=== PATIENT | male | born 1960 | race Caucasian/White ===

== ENCOUNTER 2021-07-12 06:30 | Day surgery (SDC) | payer BC ==
[2021-07-12] MEDS ORDERED: Ringers Lactate 1,000 ML IV ONE (06:56)
[2021-07-12] MEDS ORDERED: propofoL 200 MG/20 ML VIAL IV ONE (07:54)
[2021-07-12] MEDS ORDERED: LIDOCAINE 1% MPF 5 ML VIAL ONE (07:54)
--- NOTE | 2021-07-12 08:20 | ENDO RPT ---
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 ESTIMATED BLOOD LOSS: None CONSENT: The patient understands the risks and benefits of the procedure and understands that these risks include, but are not limited to: sedation, allergic reaction, infection, perforation and/or bleeding. Alternative means of evaluation and treatment include, among others: physical exam, x-rays, and/or surgical intervention. The patient elects to proceed with this endoscopic procedure. DESCRIPTION OF PROCEDURE: During intra-op preparation period all mechanical medical equipment was checked for proper function. Hand hygiene and appropriate measures for infection prevention was taken. Procedure, possible complications, alternatives including, but not limited to possibility of bleeding, perforation, tear, infection, sepsis, need for surgery, need for blood transfusion, were explained to the patient. After the risks, benefits and alternatives of the procedure were thoroughly explained, Informed consent was verified, confirmed and timeout was successfully executed by the treatment team. The patient was placed in the left lateral position. A digital rectal exam was performed and revealed internal hemorrhoids, A digital rectal exam was performed and revealed external hemorrhoids, and A digital rectal exam was performed and revealed a skin tag. After appropriate level of anesthesia, the scope was passed. The EC-[id number] ([id number]) endoscope was introduced through the anus and advanced to the cecum, which was identified by both the appendix and ileocecal valve. The quality of the prep was fair. The instrument was then slowly withdrawn as the colon was fully examined. Scope withdrawal time was 10 minutes. COLON FINDINGS: Mild diverticulosis was noted in the sigmoid colon. A few smooth flat polyps ranging between 3-5mm in size were found in the sigmoid colon. A polypectomy was performed with cold forceps. The resection was complete, the polyp tissue was completely retrieved and sent to histology. A smooth, polypoid shaped and firm pedunculated polyp ranging between 5-9mm in size was found in the anal canal. A polypectomy was performed using snare cautery. The resection was complete, the polyp tissue was completely retrieved and sent to histology. Melanosis coli. Retroflexed views revealed no abnormalities. The scope was then completely withdrawn from the patient and the procedure terminated. ADVERSE EVENTS: There were no complications. IMPRESSIONS: Mild diverticulosis was noted in the sigmoid colon RECOMMENDATIONS: 1. avoid NSAIDS for 2 weeks 2. await biopsy results 3. fiber rich diet 4. follow-up: office 2 week(s) 5. Monitor for any evidence of rectal bleeding. 6. yearly hemoquant 7. increase dietary water RECALL: for Colonoscopy, pending biopsy results. Shay Burnham DR eSigned: Shay Burnham DR 07/12/2021 8:20 AM cc: CPT CODES: ICD9 CODES: PATIENT NAME: Montrell Bernabe MR#: [id number]
[2021-07-12 09:35] VITALS: O2SAT 97
[2021-07-12 09:36] VITALS: BP 128/71; TEMP 97.2
== END 2021-07-12 09:01 | disposition home or self-care (01) ==
LOC: OR 06:30
PROVIDERS: ATTEND Surgery
PROC: 0DBN8ZX Excision of Sigmoid Colon, Via Natural or Artificial Opening Endoscopic, Diagnostic (ICD-10-PCS; 2021-07-12)
PROC: 0DBP8ZX Excision of Rectum, Via Natural or Artificial Opening Endoscopic, Diagnostic (ICD-10-PCS; 2021-07-12)
PROC: 0DBH8ZX Excision of Cecum, Via Natural or Artificial Opening Endoscopic, Diagnostic (ICD-10-PCS; principal; 2021-07-12 08:00)
DX: Z12.11 Encounter for screening for malignant neoplasm of colon (principal); K63.5 Polyp of colon; K62.1 Rectal polyp; Z20.822 Contact with and (suspected) exposure to COVID-19
CPT/HCPCS: 88305; 45380; U0003; J2704; J7120

== ENCOUNTER 2023-05-18 20:51 | Emergency (ER) | payer BC ==
--- OUTSIDE RECORDS SUMMARY | 2023-05-18 20:54 | XMS REPORT | Continuity of Care Document ---
Author Name Unknown Address [address] [place] [address] [facility] thconnect Address [address] [place] [address] Care Team Providers Care Can Dryer Name Role Phone JUNAID FRASER Primary Care Physician UnavailFLORINDA Parks Attending Clinician Unavailable FLORINDA TALLEY Attending Clinician Unavailable Doctor Unassigned, [place] [facility] Attending Clinician U Mariza Queen Attending Clinician [phone] Payers Payer Name Policy Type Policy Number Effective Date Expirati on Date Source Problems Condition Name Condition Details Condition Category Status Onset Date Resolution Date Last Treatment Date Treating Clinician Comments Source No known active problems No known active problems Disease [facility] Allergies, Adverse Reactions, Alerts Allergy Name Allergy Type Status Severity Reaction(s) Onset Date Inactive Date Treating Clinician Comments Source ANESTHET IC REVERSAL AGENT DA Active SV 10-04 00:00: 00 [facility] NO KNOWN ALLERGIE S Drug Class Active [facility] Social History Social Habit Start Date Stop Date Quantity Comments Source Gender [facility] Sexual [facility] Exposure to SARS-CoV-2 (event) Not sure [facility] Tobacco use and exposure 2022-08-19 00:00:00 2022-08-19 00:00:00 Former smokeless tobacco user [facility] Alcohol intake 2022-08-19 00:00:00 2022-08-19 00:00:00 .43 /d [facility] History of Social function 2022-08-19 00:00:00 2022-08-19 00:00:00 [facility] Alcohol Comment 2022-08-19 00:00:00 2022-08-19 00:00:00 Occasional [facility] History of tobacco use 2000-06-28 00:00:00 Snuff User [facility] Sex Assigned At 1960 00:00:00 1960 00:00:00 [facility] Smoking Status Start Date Stop Date Source Never smoked tobacco [facility] Unknown if ever smoked [facility] Medications Ordered Medication Name Filled Medication Name Start Date Stop Date Current Medication? Ordering Clinician Indication Dosage Frequency Signature (SIG) Comments Components Source tamsulosin 0.4 mg 24 hr capsule 2022-02 00:00: 00 Yes [id number] .4mg Take 1 capsule by mouth in the morning. [facility] lamoTRIgine 100 mg tablet 08-19 14:27: 49 Yes 100mg Take 1 tablet by mouth in the morning and 1 tablet in the evening. [facility] tamsulosin 0.4 mg 24 hr capsule 08-19 00:00: 00 12-02 00:00 :00 No .4mg Take 1 capsule in the morning. [facility] acetaminoph en-codeine (TYLENOL #3) 300-30 mg tablet 1 tablet 2019-02 07:15: 00 01-05 06:08 :00 No 1{tbl} 1 tablet, Oral, ONCE, 1 dose, Thu01/06/20 at 0115, NAVYA [facility] bupivacaine (preserv free) (SENSORCAIN E MPF) 0.25 % (2.5 mg/mL) injection 10 mL 2019-02 07:15: 01-05 06:09 :00 No 10mL 10 mL, Infiltrati on, ONCE, 1 dose, Thu01/06/20 at 0115, NAVYA [facility] tetanus-dip htheria toxoids (TENIVAC) 5-2 Lf unit/0.5 mL injection 0.5 mL 2019-02 07:15: 00 01-05 06:08 :00 No .5mL 0.5 mL, Intramuscu lar, ONCE, 1 dose, Thu01/06/20 at 0115, Routine [facility] tamsulosin 0.4 mg 24 hr capsule 08-19 00:00: 00 08-19 00:00 :00 No [facility] testosteron e 1.62 % (20.25 mg/1.25 gram) gel 08-19 00:00: 00 Yes [facility] lamotrigine (LAMICTAL ODT ORAL) 07-20 00:00: 00 08-19 00:00 :00 No [facility] No known medications No Un yanci [facility] Immunizations Ordered Immunization Name Filled Immunization Name Date Status Comments Source Td 2020-01-06 00:00:00 Completed [facility] TD, NOS 2020-01-06 00:00:00 Completed [facility] TD, NOS 2020-01-06 00:00:00 Completed [facility] TD, NOS Unknown Completed [facility] TD, NOS Unknown Completed [facility] TD, NOS Unknown Completed [facility] TD, NOS Unknown Completed [facility] TD, NOS Unknown Completed [facility] TD, NOS Unknown Completed [facility] TD, NOS Unknown Completed [facility] TD, NOS Unknown Completed [facility] TD, NOS Unknown Completed [facility] TD, NOS Unknown Completed [facility] TD, NOS Unknown Completed [facility] TD, NOS Unknown Completed [facility] TD, NOS Unknown Completed [facility] TD, NOS Unknown Completed [facility] TD, NOS Unknown Completed [facility] Vital Signs Vital Name Observation Time Observation Value Comments S ource Systolic blood pressure 2022-08-19 18:59:00 164 mm[Hg] [facility] Diastolic blood pressure 2022-08-19 18:59:00 81 mm[Hg] [facility] Oxygen saturation in Arterial blood by Pulse oximetry 2022-08-19 18:58:00 97 /min [facility] Heart rate 2022-08-19 18:58:00 62 /min [facility] Body height 2022-08-19 18:58:00 180.3 cm [facility] Body weight 2022-08-19 18:58:00 115.486 kg [facility] BMI 2022-08-19 18:58:00 35.51 kg/m2 [facility] Systolic blood pressure 2020-01-06 07:30:00 168 mm[Hg] [facility] Diastolic blood pressure 2020-01-06 07:30:00 82 mm[Hg] [facility] Heart rate 2020-01-06 07:30:00 66 /min [facility] Oxygen saturation in Arterial blood by Pulse oximetry 2020-01-06 07:00:00 95 /min [facility] Respiratory rate 2020-01-06 06:30:00 16 /min [facility] Body temperature 2020-01-06 05:39:00 36.67 Lesley [facility] Body height 2020-01-06 05:39:00 180.3 cm [facility] Body weight 2020-01-06 05:39:00 113.399 kg [facility] BMI 2020-01-06 05:39:00 34.87 kg/m2 [facility] Procedures Procedure Date / Time Performed Performing Clinician Source INSURANCE CORRESPONDENCE 2023-04-23 05:01:00 Doc tor Unassigned, [facility] EXTERNAL PROVIDER RECORDS 2023-04-15 06:01:00 Do ctor Unassigned, [place] [facility] RADIOLOGY DOCUMENTATION 2023-03-25 06:01:00 Doct or Unassigned, [place] [facility] ED LACERATION REPAIR 2020-01-06 07:50:00 Mariza Caputo [facility] ASSIGNMENT OF BENEFITS 2020-01-06 06:21:46 Docto r Unassigned, [place] [facility] NOTICE OF PRIVACY PRACTICES 2020-01-06 05:26:47 Doctor Unassigned, [place] [facility] Encounters Start Date/Time End Date/Time Encounter Type Admission Type Attending [facility] Care Department Encounter ID Source 2023-04-23 00:00:00 2023-04-23 00:00:00 Orders Only Doctor Unassigned, [place] [facility] 1.2.840.114 350.1.13.10 4.2.7.2.686 [id number] [id number] [facility] 2023-04-15 00:00:00 2023-04-15 00:00:00 Orders Only Doctor Unassigned, [place] [facility] 1.2.840.114 350.1.13.10 4.2.7.2.686 [id number] [id number] [facility] 2023-04-01 00:00:00 2023-04-01 00:00:00 Letter (Out) [facility] 1.2.840.114 350.1.13.10 4.2.7.2.686 [id number] [id number] [facility] 2023-04-01 00:00:00 2023-04-01 00:00:00 Letter (Out) [facility] 1.2.840.114 350.1.13.10 4.2.7.2.686 [id number] [id number] [facility] 2023-03-30 00:00:00 2023-03-30 00:00:00 Letter (Out) [facility] 1.2.840.114 350.1.13.10 4.2.7.2.686 [id number] 019 [id number] [facility] 2023-03-25 00:00:00 2023-03-25 00:00:00 Orders Only Doctor Unassigned, [place] [facility] 1.2.840.114 350.1.13.10 4.2.7.2.686 [id number] [id number] [facility] 2023-03-25 00:00:00 2023-03-25 00:00:00 Telephone Gerri [facility] ULISES?[facility] 1.2.840.114 350.1.13.10 4.2.7.2.686 [id number] 044 [id number] [facility] 2023-03-12 00:00:00 2023-03-12 00:00:00 Patient Secure Msg Gerri [facility] 1..840.114 350.1.13.10 4.2.7.2.686 [id number] [facility] 2023-03-03 00:00:00 2023-03-03 00:00:00 Patient Secure Msg Doctor Unassigned, [place] [facility] 1..840.114 350.1.13.10 4.2.7.2.686 [id number] [facility] 2023-03-01 00:00:00 2023-03-01 00:00:00 Refill Gerri [facility] ULISES?[facility] 1.2.840.114 350.1.13.10 4.2.7.2.686 [id number] 044 [id number] [facility] 2022-12-02 00:00:00 2022-12-02 00:00:00 Patient Secure g Gerir [facility] ULISES?[facility] 1..840.114 350.1.13.10 4.2.7.2.686 [id number] [facility] 2022-08-19 14:00:00 2022-08-19 14:36:42 Outpatient [facility] [id number] [facility] 2022-08-19 14:00:00 2022-08-19 14:36:42 Office Visit Florinda Talley [facility] 1..840.114 350.1.13.10 4.2.7.2.686 [id number] [facility] 2020-01-05 23:42:00 2020-01-06 02:06:00 Emergency CaputoMariza everett [facility] 1..840.114 350.1.13.10 4.2.7.2.686 [id number] [facility] 2020-01-05 23:28:00 2020-01-05 23:28:00 Emergency [facility] [id number] [facility] Notes Date/Time Note Provider Source 2023-03-31 16:59:49 3xZyT4u8SbgiJZg28hNh P8FaCm56WMaG eEy4hOymgKxBn9RSs8QSMppFaGF4Yoxh 3450-69-85A00:59:49Addended by: REBA CAPUTO on: 03/31/2023 04:59 PMModules accepted: Orders 64465-7Teqamumh OozvxyynAY9167-62-47P99:59:49Add endum DocumentTXT1.2.840.568729.1.13.1 04.2.7.2.750965|[id number] lable for patient fibc24297-8MsexFXTENNOEOEGCxmpnp andi Nagy-CDA narrative [id number] J Medina MA[address] QffgPlzxjymsqTqemojsgfGMIN403490 0629BGOXLLAEXHDMOEQIKPGGNV0032-6 6:59:491.2.840.813078.1.72 .3.15|1..840.958643.1.13.104.2. 7.2.727879_[id number] Reba Caputo MA [facility] 2023-03-31 16:55:59 4vuV2SlkwYRP5HBrmYgi /uB/14mpAfnN TOr8pGPp+pTiI8SNL2Bn9MenXW4C9lZt 3602-56-98A34:55:59 Yes, I approve 88967-6Unycnqebn encounter KbdoJZ2195-66-92B03:56:09Telepho ne encounter NoteTXT1.2.840.081853.1.13.104.2 .7.2.369358|[id number] e for patient fxfd73657-6IkxtYBBXOBJTYITNfhyws andi C-CDA narrative [address] VezxSssawuoxgSowsjbqknJNWI034959 9557ITADQGCZSXAOMRUPIJYSOF9674-1 2-20T16:56:091.2.840.276810.1.72 .3.15|1.2.840.409069.1.13.104.2. 7.2.727879_[id number] [facility] 2023-03-31 09:15:28 MCN5p1rr/PhJNIGZuNA/ 7QKKEvnqnrVj 38pH/wxUy6w/gtCKAzq8LnVSFvj0OYQj 0944-92-43Z56:15:28 Do you approve neurologist referral ? 78538-7Xctwemhol encounter GroyUR3638-35-00Z40:15:51Telepho ne encounter NoteTXT1.2.840.757384.1.13.104.2 .7.2.613575|[id number] e for patient wfat96551-1FyeuGMTBKAHGPNMVoeqxs andi C-CDA narrative myte117049234Faktnocs Y Ruiz [address] YzqtRguxxnrchVznetgdjvGOLZ421287 8277NNXJOCLKLEEYVFRTSZQLIO9296-8 09:15:511.2.840.537487.1.72 .3.15|1.2.840.024297.1.13.104.2. 7.2.727879_[id number] Ibis Brasher [facility] 2023-03-25 16:28:29 48Ep2E5qxyVhZ5Q6drrQ tsV30daw44fb FMK941uMfVIYj4SN5IZ74JqY7cRwIKHL 4798-13-91T75:28:29 Received radiology service report from [facility]. Placed in the providers box. 01109-8Mbctaerxj encounter HklpRI2260-44-81X05:29:49Telepho ne encounter NoteTXT1.2.840.596846.1.13.104.2 .7.2.272084|7982268383DGKqsdxuss e for patient kqqi87519-5OplvCWNOMLRUDAITnmqwl andi C-CDA narrative sngv669912038Mkkvklrxb [address] YesqBsuohiuzbNifktvvmkQDFS572504 2522PEVZQPBGYCXXBYIKCRVYAP5208-1 6:29:491.2.840.444314.1.72 .3.15|1.2.840.227218.1.13.104.2. 7.2.727879_[id number] Anay Lau [facility] 2023-03-16 08:12:31 Y2zC52W5XgBQaQDD6KzL 9IpQ+/bhVXps mXgXtgBl4Cbg73SlazDLk5QGCSlDmxks 3899-71-19R65:12:31 Referral placed by provider. Patient notified via mychart 73468-6Aylxgqngi encounter LpesTC0555-35-98M33:12:54Telepho ne encounter NoteTXT1.2.840.899390.1.13.104.2 .7.2.430148|7629231837BGPujpknru e for patient nbov62343-9CqgnAPRTTBDQTYPZdvkmb andi C-CDA narrative vtkw677633503Cutjpmyl Y Ruiz MA[address] 0777HIYMYVDHEIWZFOWRLWQUSF1480-2 2-05T08:12:541.2.840.650629.1.72 .3.15|1.2.840.152094.1.13.104.2. 7.2.727879_[id number] Ibis Brasher MA [facility] 2023-03-14 10:02:44 1hIhLG8oMHEK68WX1u+T rGF0voN1f8qL LTqWyV7WTihPs2ESky/uj5zvbIEaqGtA 1718-33-87Q15:02:44 Referral made 55894-8Gotklstpz encounter NsabVO0685-13-90O88:02:50Telepho ne encounter NoteTXT1.2.840.169479.1.13.104.2 .7.2.083438|0925500951QOLspufket e for patient lyqa29463-5IkgoWVSOAYHXTYTYrbdnz andi C-CDA narrative [address] 4395GLJEJUVSNHEKPFEHVLZFZN5638-6 0:02:501.2.840.633427.1.72 .3.15|1.2.840.136511.1.13.104.2. 7.2.727879_[id number] [facility] 2023-03-12 09:49:24 jXPosRLP0sKKZngudUJF 4vpX4BH9nSau 6NmDWBln9s8yCAV/wzbjMjEacx7Jff8v 6724-96-25F06:49:[address] referral if appropriate 39905-9Gghvzbhsx encounter JvqeTM9830-68-87U91:49:43Telepho ne encounter NoteTXT1.2.840.864544.1.13.104.2 .7.2.865463|8529367801WWUqrlwien for patient tips90191-4QkwhFOJFBXXOHTPOovyrv andi C-CDA narrative [id number] Y Ruiz [address] TylyHnbmrbeogIkyvfzcmnRTXQ645963 4254EYNTERDUNAPCCVWUGUVDJX2049-9 09:49:431.2.840.538790.1.72 .3.15|1.2.840.242168.1.13.104.2. 7.2.727879_[id number] Ibis Brasher [facility]"
[2023-05-19] MEDS ORDERED: ONDANSETRON 4 MG/2 ML VIAL ONE (00:04)
[2023-05-19] MEDS ORDERED: MORPHINE 4 MG/ML SYR ONE (00:05)
[2023-05-19] MEDS ORDERED: KETOROLAC 30 MG/ML INJ ONE (00:05)
[2023-05-19] MEDS ORDERED: NA CHLORIDE 0.9% 1,000 ML ONE (00:05)
[2023-05-19 01:00] LABS: Absolute Monocytes 1.8 K/uL (0.1-1.3); Absolute Neutrophil 13.2 K/uL (1.8-8.0); Basophils % 0.2 % (0-1.3); Eosinophils % 0.2 % (0-4.4); Hematocrit 44.7 % (39.6-49.0); Hemoglobin 15.9 g/dL (13.6-17.9); Lymphocytes % 6.5 % (15.3-44.8); MCH 32.5 pg (27.0-35.0); MCHC 35.5 g/dL (32.0-36.0); MCV 91.4 fL (80-100); MPV 8.7 fL (7.6-11.3); Monocytes % 11.3 % (3.3-12.3); Neutrophils % 81.8 % (41.7-73.7); Platelets 195 thou/uL (152-406); RBC Red Blood Cell Count 4.89 M/uL (4.33-5.43); Red Cell Distribution Width 12.9 % (12.1-15.2)
[2023-05-19 01:07] LABS: Albumin 3.8 g/dL (3.4-5.0); Anion Gap 9.5 mEq/L (5.0-15.0); Bilirubin Total 1.1 mg/dL (0.2-1.0); Globulin 3.7 g/dL (2.3-3.5); Potassium 4.5 mEq/L (3.5-5.1); Protein, Total 7.5 g/dL (6.4-8.2)
[2023-05-19 01:33] LABS: Specific Gravity 1.019 (1.005-1.030); Urine Bilirubin NEGATIVE (Negative); Urine Blood Negative (Negative); Urine Clarity Clear (Clear); Urine Color Light-Yellow (Yellow); Urine Glucose NEGATIVE (Negative); Urine Ketones NEGATIVE (Negative); Urine Microscopic Reflex YN NO UMIC; Urine Nitrite NEGATIVE (Negative); Urine Protein NEGATIVE (Negative); Urine Urobilinogen Normal (Normal); Urine pH 7.5 (5.0-7.0)
--- NOTE | 2023-05-19 02:31 | ER ---
Nurse's Notes [facility] Name: Montrell Bernabe Jr Age: 62 yrs Sex: Male : 1960 Arrival Date: 05/18/2023 Time: 20:51 Bed 17 Private MD: Diagnosis: Diverticulitis of large intestine without perforation or abscess without bleeding Presentation: 05/17 21:06 Chief complaint: Patient states: abdominal pain that started yesterday. pt reports this as6 feels similar to his past diverticulitis episodes. Coronavirus screen: At this time, the client does not indicate any symptoms associated with coronavirus-19. Ebola Screen: No symptoms or risks identified at this time. Initial Sepsis Screen: Does the patient meet any 2 criteria? No. Patient's initial sepsis screen is negative. Does the patient have a suspected source of infection? No. Patient's initial sepsis screen is negative. Risk Assessment: Do you want to hurt yourself or someone else? Patient reports no desire to harm self or others. Onset of symptoms was May 17, 2023. 21:06 Method Of Arrival: Ambulatory as6 21:06 Acuity: VIOLETTE 3 as6 Historical: - Allergies: 21:08 No Known Allergies; as6 - PMHx: 21:08 Diverticulitis; Seizure; as6 - PSHx: 21:08 hernia; arm; shouolder; knee; as6 - Immunization history:: Adult Immunizations up to date. - Infectious Disease History:: Denies. - Social history:: Smoking status: Patient denies any tobacco usage or history of. - Family history:: not pertinent. Screenin:50 [facility] ED Fall Risk Assessment (Adult) History of falling in the last 3 months, ha1 including since admission No falls in past 3 months (0 pts) Confusion or Disorientation No (0 pts) Intoxicated or Sedated No (0 pts) Impaired Gait No (0 pts) Mobility Assist Device Used No (0 pt) Altered Elimination No (0 pt) Score/Fall Risk Level 0 - 2 = Low Risk Oriented to surroundings, Maintained a safe environment, Hourly rounding (assess needs \T\ fall precautionary measures) done. Abuse screen: Denies threats or abuse. Denies injuries from another. Nutritional screening: No deficits noted. Tuberculosis screening: No symptoms or risk factors identified. Assessment: 23:30 General: Appears uncomfortable, Behavior is calm, cooperative. Pain: Complains of pain ha1 in left lower quadrant Pain does not radiate. Pain currently is 10 out of 10 on a pain scale. Quality of pain is described as throbbing, Pain began 1 day ago. Is continuous. Neuro: Level of Consciousness is awake, alert, obeys commands, Oriented to person, place, time, situation. Cardiovascular: Capillary refill < 3 seconds Patient's skin is warm and dry. Respiratory: Airway is patent Respiratory effort is even, unlabored, Respiratory pattern is regular, symmetrical. GI: Abdomen is round non-distended, Bowel sounds present X 4 quads. Abd is soft and non tender X 4 quads. Reports lower abdominal pain, nausea, vomiting. : No signs and/or symptoms were reported regarding the genitourinary system. Derm: Skin is pink, warm \T\ dry. Musculoskeletal: Circulation, motion, and sensation intact. 05/18 00:30 Reassessment: Patient and/or family updated on plan of care and expected duration. Pain ha1 level reassessed. Patient is alert, oriented x 3, equal unlabored respirations, skin warm/dry/pink. 01:30 Reassessment: Patient and/or family updated on plan of care and expected duration. Pain ha1 level reassessed. Patient is alert, oriented x 3, equal unlabored respirations, skin warm/dry/pink. 02:40 Reassessment: Patient and/or family updated on plan of care and expected duration. Pain ha1 level reassessed. Patient is alert, oriented x 3, equal unlabored respirations, skin warm/dry/pink. PAIN 2/10 Patient states feeling better. Patient states symptoms have improved. Vital Signs: 05/17 21:06 BP 195 / 72; Pulse 84; Resp 18; Temp 97.9(TE); Pulse Ox 97% on R/A; Weight 117.93 kg as6 (R); Height 5 ft. 11 in. (R); Pain 8/10; 05/18 00:40 BP 176 / 74; Pulse 69; Resp 17 S; Pulse Ox 96% on R/A; ha1 01:00 BP 150 / 71; Pulse 66; Resp 17 S; Pulse Ox 96% on R/A; ha1 02:00 BP 156 / 67; Pulse 67; Resp 17 S; Pulse Ox 96% on R/A; ha1 03:00 BP 153 / 68; Pulse 65; Resp 17 S; Pulse Ox 96% on R/A; ha1 05/17 21:06 Body Mass Index 36.26 (117.93 kg, 180.34 cm) as6 05/17 21:06 Pain Scale: Adult as6 ED Course: 05/17 20:58 Patient arrived in ED. gm2 20:59 Rustam Shaffer MD is Attending Physician. sp4 21:06 Arm band placed on right wrist. as6 21:08 Triage completed. as6 23:10 Patient has correct armband on for positive identification. Placed in gown. Bed in low ha1 position. Call light in reach. Side rails up X 1. 23:15 Joie Pride, RN is Primary Nurse. ha1 23:55 Inserted saline lock: 20 gauge in left Blood collected. ha1 04 00:34 CBC with Diff Sent. ha1 00:34 CMP Sent. ha1 00:34 Lipase Sent. ha1 00:35 Urinalysis w/ reflexes Sent. ha1 01:34 CT Abd/Pelvis - IV Contrast Only In Process Unspecified. EDMS 03:08 Provided Education on: MEDICATION ADMINISTRATION . ha1 03:08 No provider procedures requiring assistance completed. ha1 03:08 IV discontinued, intact, bleeding controlled, No redness/swelling at site. Pressure ha1 dressing applied. Administered Medications: 00:34 Drug: NS 0.9% IV 1000 ml IV at 1 bolus Per protocol; 1000 mL bolus Route: IV; Rate: 1 ha1 bolus; Site: left antecubital; 03:02 Follow up: Response: No adverse reaction; IV Status: Completed infusion; IV Intake: ha1 1000ml 00:34 Drug: Ondansetron IVP 4 mg IVP once; over 2 minutes Route: IVP; Site: left antecubital; ha1 01:00 Follow up: Response: No adverse reaction ha1 00:35 Drug: TORadol - Ketorolac IVP 30 mg IVP once Route: IVP; Site: left antecubital; ha1 01:00 Follow up: Response: No adverse reaction; Marked relief of symptoms; Pain is decreased ha1 00:35 Drug: morphine IVP or IV 4 mg IVP once over 4 mins Route: IVP; Infused Over: 4 mins; ha1 Site: left antecubital; 01:00 Follow up: Response: No adverse reaction; Pain is decreased; RASS: Alert and Calm (0) ha1 02:36 Drug: Rocephin - Rocephin (cefTRIAXone) IVPB 1 grams IVPB once over 30 mins; (mix in 50 ha1 mL NS) Route: IVPB; Infused Over: 30 mins; Site: left antecubital; 03:02 Follow up: Response: No adverse reaction; IV Status: Completed infusion; IV Intake: [id number] 02:45 Drug: metroNIDAZOLE IVPB 500 mg 100 ml IVPB at 200 ml/hr once over 30 mins Volume: 100 ha1 ml; Route: IVPB; Rate: 200 ml/hr; Infused Over: 30 mins; Site: left antecubital; 03:10 Follow up: Response: No adverse reaction; IV Status: Completed infusion; IV Intake: ha1 100ml 02:54 Drug: [place] PO 10 mg-325 mg 1 tabs PO once Route: PO; ha1 03:08 Follow up: Response: No adverse reaction; Marked relief of symptoms; RASS: Alert and ha1 Calm (0) 02:54 Drug: MetoCLOPramide PO 10 mg PO once Route: PO; ha1 03:01 Follow up: Response: No adverse reaction; Marked relief of symptoms ha1 Medication: 03:08 VIS not applicable for this client. ha1 Intake: 03:02 IV: 50ml; Total: 50ml. ha1 03:02 IV: 1000ml; Total: 1050ml. ha1 03:10 IV: 100ml; Total: 1150ml. ha1 Outcome: 02:30 Discharge ordered by MD. merlos 03:08 Discharged to home ambulatory, with family, ha1 03:08 Condition: stable 03:08 Discharge instructions given to patient, family, Instructed on discharge instructions, follow up and referral plans. medication usage, Demonstrated understanding of instructions, follow-up care, medications, Prescriptions given X 4, 03:08 Patient left the ED. ha1 Signatures: Dispatcher [employer] EDMS Huang Wayne RN RN as6 Joie Pride RN RN ha1 Rustam Shaffer MD MD sp4 Kaci Patton 2 Corrections: (The following items were deleted from the chart) 03:33 03:33 Patient left the ED. ha1 ha1
--- NOTE | 2023-05-19 02:31 | EDPHYS ---
Physician Documentation [facility] Name: Montrell Bernabe Jr Age: 62 yrs Sex: Male : 1960 Arrival Date: 05/18/2023 Time: 20:51 Bed 17 Private MD: ED Physician Rustam Shaffer HPI: 05/17 20:59 This 62 yrs old Male presents to ER via Unassigned with complaints of Fever, sp4 Abdominal Pain, Flank Pain. 05/18 02:32 62-year-old male presents with left lower abdominal pain for the past 3 days. sp4 Historical: - Allergies: 05/17 21:08 No Known Allergies; as6 - PMHx: 21:08 Diverticulitis; Seizure; as6 - PSHx: 21:08 hernia; arm; shouolder; knee; as6 - Immunization history:: Adult Immunizations up to date. - Infectious Disease History:: Denies. - Social history:: Smoking status: Patient denies any tobacco usage or history of. - Family history:: not pertinent. ROS: 05/18 02:32 Constitutional: Negative for fever, chills, and weight loss, positive for left lower sp4 abdominal pain All other systems are negative, Exam: 02:32 Constitutional: This is a well developed, well nourished patient who is awake, alert, sp4 and in no acute distress. Head/Face: Normocephalic, atraumatic. Eyes: Pupils equal round and reactive to light, extra-ocular motions intact. Lids and lashes normal. Conjunctiva and sclera are not injected. Cornea within normal limits. Periorbital areas with no swelling, redness, or edema. ENT: Nares patent. No nasal discharge, no septal abnormalities noted. Tympanic membranes are normal and external auditory canals are clear. Oropharynx with no redness, swelling, or masses, exudates, or evidence of obstruction, uvula midline. Mucous membranes moist. Neck: Trachea midline, no thyromegaly or masses palpated, and no cervical lymphadenopathy. Supple, full range of motion without nuchal rigidity, or vertebral point tenderness. Chest/axilla: Normal chest wall appearance and motion. Nontender with no deformity. No lesions are appreciated. Cardiovascular: Regular rate and rhythm with a normal S1 and S2. No gallops, murmurs, or rubs. Normal PMI, no JVD. No pulse deficits. Respiratory: Lungs have equal breath sounds bilaterally, clear to auscultation and percussion. No rales, rhonchi or wheezes noted. No increased work of breathing, no retractions or nasal flaring. Abdomen/GI: Soft, with normal bowel sounds. No distension or tympany. No guarding or rebound. No evidence of tenderness throughout. Back: No spinal tenderness. No costovertebral tenderness. Skin: Warm, dry with normal turgor. Normal color with no rashes, no lesions, and no evidence of cellulitis. MS/ Extremity: Pulses equal, no cyanosis. Neurovascular intact. Full, normal range of motion. Neuro: Awake and alert, GCS 15, oriented to person, place, time, and situation. Cranial nerves II-XII grossly intact. Motor strength 5/5 in all extremities. Sensory grossly intact. Psych: Awake, alert, with orientation to person, place and time. Behavior, mood, and affect are within normal limits Vital Signs: 05/17 21:06 BP 195 / 72; Pulse 84; Resp 18; Temp 97.9(TE); Pulse Ox 97% on R/A; Weight 117.93 kg as6 (R); Height 5 ft. 11 in. (R); Pain 8/10; 05/18 00:40 BP 176 / 74; Pulse 69; Resp 17 S; Pulse Ox 96% on R/A; ha1 01:00 BP 150 / 71; Pulse 66; Resp 17 S; Pulse Ox 96% on R/A; ha1 02:00 BP 156 / 67; Pulse 67; Resp 17 S; Pulse Ox 96% on R/A; ha1 03:00 BP 153 / 68; Pulse 65; Resp 17 S; Pulse Ox 96% on R/A; ha1 05/17 21:06 Body Mass Index 36.26 (117.93 kg, 180.34 cm) as6 05/17 21:06 Pain Scale: Adult as6 MDM: 05/17 21:09 Patient medically screened. sp4 05/18 02:25 ED course: Lung Bases: Mild dependent atelectasis. Bones: Osteoarthritic change of the sp4 hips. Abdomen: Liver: Hepatomegaly with diffusely decreased density. Gallbladder: No calcified gallstones. Spleen, Pancreas, and Adrenal Glands: The spleen, pancreas, and adrenal glands are unremarkable. Kidneys: No hydronephrosis or obstructing calculus. Vasculature: The aorta and IVC have normal caliber and position. The portal vein is patent. The proximal visceral and renal arteries are patent. Stomach: The stomach and duodenum have normal course. Other: No free intraperitoneal air. Trace free fluid. Mild subcutaneous fat stranding around the umbilicus of indeterminate etiology. Pelvis: Bladder: Urinary bladder is unremarkable. Bowel: No dilated loops of large or small bowel. Short segment wall thickening of the proximal sigmoid colon centered on an inflamed diverticula. No well-circumscribed paracolic fluid collection. Appendix: Normal appendix. Pelvis:Enlarged prostate. Small left fat-containing inguinal hernia. IMPRESSION: 1. Findings compatible with acute uncomplicated diverticulitis of the proximal sigmoid colon. 2. Hepatomegaly and hepatic steatosis. 3. Enlarged prostate. . 02:32 Differential diagnosis: viral Infection, bacterial infection, UTI, gastroenteritis. sp4 Data reviewed: vital signs, nurses notes, lab test result(s), radiologic studies, CT scan. Consideration of Admission/Observation Escalation of care including admission/observation considered. ED course: Patient states he is feeling okay and prefer to take antibiotics at home.. 05/17 21:17 Order name: CBC with Diff; Complete Time: 02:25 sp4 05/17 21:17 Order name: CMP; Complete Time: 02:25 sp4 05/17 21:17 Order name: Lipase; Complete Time: 02:25 sp4 05/17 21:17 Order name: Urinalysis w/ reflexes; Complete Time: 02:25 sp4 05/17 21:17 Order name: CT Abd/Pelvis - IV Contrast Only sp4 05/17 21:17 Order name: IV Saline Lock; Complete Time: 00:34 sp4 05/17 21:17 Order name: Labs collected and sent; Complete Time: 00:34 sp4 Administered Medications: 00:34 Drug: NS 0.9% IV 1000 ml IV at 1 bolus Per protocol; 1000 mL bolus Route: IV; Rate: 1 ha1 bolus; Site: left antecubital; 03:02 Follow up: Response: No adverse reaction; IV Status: Completed infusion; IV Intake: ha1 1000ml 00:34 Drug: Ondansetron IVP 4 mg IVP once; over 2 minutes Route: IVP; Site: left antecubital; ha1 01:00 Follow up: Response: No adverse reaction ha1 00:35 Drug: TORadol - Ketorolac IVP 30 mg IVP once Route: IVP; Site: left antecubital; ha1 01:00 Follow up: Response: No adverse reaction; Marked relief of symptoms; Pain is decreased ha1 00:35 Drug: morphine IVP or IV 4 mg IVP once over 4 mins Route: IVP; Infused Over: 4 mins; ha1 Site: left antecubital; 01:00 Follow up: Response: No adverse reaction; Pain is decreased; RASS: Alert and Calm (0) ha1 02:36 Drug: Rocephin - Rocephin (cefTRIAXone) IVPB 1 grams IVPB once over 30 mins; (mix in 50 ha1 mL NS) Route: IVPB; Infused Over: 30 mins; Site: left antecubital; 03:02 Follow up: Response: No adverse reaction; IV Status: Completed infusion; IV Intake: [id number] 02:45 Drug: metroNIDAZOLE IVPB 500 mg 100 ml IVPB at 200 ml/hr once over 30 mins Volume: 100 ha1 ml; Route: IVPB; Rate: 200 ml/hr; Infused Over: 30 mins; Site: left antecubital; 03:10 Follow up: Response: No adverse reaction; IV Status: Completed infusion; IV Intake: ha1 100ml 02:54 Drug: [place] PO 10 mg-325 mg 1 tabs PO once Route: PO; ha1 03:08 Follow up: Response: No adverse reaction; Marked relief of symptoms; RASS: Alert and ha1 Calm (0) 02:54 Drug: MetoCLOPramide PO 10 mg PO once Route: PO; ha1 03:01 Follow up: Response: No adverse reaction; Marked relief of symptoms ha1 Disposition Summary: 05/19/23 02:30 Discharge Ordered Notes: Location: Home sp4 Problem: new sp4 Symptoms: have improved sp4 Condition: Stable sp4 Diagnosis - Diverticulitis of large intestine without perforation or abscess without bleeding sp4 Followup: sp4 - With: Private Physician - When: 7 - 10 days - Reason: Recheck today's complaints Discharge Instructions: - Discharge Summary Sheet sp4 - Diverticulitis, [id number] sp4 Forms: - Patient Portal Instructions sp4 Prescriptions: - Cephalexin 500 mg Oral Capsule - take 1 capsule ORAL route every 6 hours for 10 days; 40 capsule; Refills: 0, sp4 Product Selection Permitted - Flagyl 500 mg Oral Tablet - take 1 tablet ORAL route every 8 hours for 10 days; 30 tablet; Refills: 0, sp4 Product Selection Permitted - Ibuprofen 800 mg Oral Tablet - take 1 tablet ORAL route every 8 hours As needed take with food; 30 tablet; sp4 Refills: 0, Product Selection Permitted - Tramadol 50 mg Oral tablet - take 1 tablet ORAL route every 8 hours as needed; 20 tablet; Refills: 0, sp4 Product Selection Permitted - ondansetron 8 mg Oral Tablet,disintegrating - take 1 tablet ORAL route every 8 hours; 30 tablet; Refills: 0, Product sp4 Selection Permitted Signatures: Dispatcher [employer] Huang Mathew RN RN as6 Joie Pride RN RN ha1 Rustam Shaffer MD MD sp4
[2023-05-19] MEDS ORDERED: CEFTRIAXONE 1000 MG/VIAL ONE (02:38)
[2023-05-19] MEDS ORDERED: METOCLOPRAMIDE 10 MG/2mL INJ ONE (02:39)
[2023-05-19] MEDS ORDERED: HYDROCODONE/APAP 10/325 TAB ONE (02:39)
[2023-05-19] MEDS ORDERED: METRONIDAZOLE 500mg IVPB 500 MG/100 ML BAG IV ONE (02:39)
[2023-05-19 06:53] VITALS: BP 153/68; TEMP 97.9; O2SAT 96
--- NOTE | 2023-05-19 10:41 | RAD REPORT ---
EXAM DESCRIPTION: CT - Abdomen Pelvis W Contrast - 05/19/2023 7:07 am CLINICAL HISTORY: LLQ pain COMPARISON: July 23, 2023 TECHNIQUE: CT of the abdomen and pelvis performed following IV administration of iodinated contras t. This exam was performed according to our departmental dose-optimization program, which includes au tomated exposure control, adjustment of the mA and/or kV according to patient size and/or use of iter ative reconstruction technique. FINDINGS: Lung Bases: Mild dependent atelectasis. Bones: Osteoarthritic change of the hips. Abdomen: Liver: Hepatomegaly with diffusely decreased density. Gallbladder: No calcified gallstones. Spleen, Pancreas, and Adrenal Glands: The spleen, pancreas, and adrenal glands are unremarkable. Kidneys: No hydronephrosis or obstructing calculus. Vasculature: The aorta and IVC have normal caliber and position. The portal vein is patent. The pro ximal visceral and renal arteries are patent. Stomach: The stomach and duodenum have normal course. Other: No free intraperitoneal air. Trace free fluid. Mild subcutaneous fat stranding around the umbilicus of indeterminate etiology. Pelvis: Bladder: Urinary bladder is unremarkable. Bowel: No dilated loops of large or small bowel. Short segment wall thickening of the proximal sigm oid colon centered on an inflamed diverticula. No well-circumscribed paracolic fluid collection. Appendix: Normal appendix. Pelvis: Enlarged prostate. Small left fat-containing inguinal hernia. IMPRESSION: 1. Findings compatible with acute uncomplicated diverticulitis of the proximal sigmoid colon. 2. Hepatomegaly and hepatic steatosis. 3. Enlarged prostate. Electronically signed by: Giorgi Washington DO 05/19/2023 02:13 AM CDT M Due to temporary technical issues with the PACS/Fluency reporting system, reports are being signed by the in house radiologists without review as a courtesy to insure prompt reporting. The interpreting radiologist is fully responsible for the content of the report.
== END 2023-05-19 03:33 | disposition home or self-care (01) ==
LOC: ER 20:51
DX: K57.32 Diverticulitis of large intestine without perforation or abscess without bleeding (principal)
CPT/HCPCS: 96365; 96361; 85025; 36415; 81003; 83690; 80053; 74177; 96375; 99284; Q9967; J2765; J2405; J7030; J0696

== ENCOUNTER 2024-03-22 20:16 | Emergency (ER) | payer BC ==
--- OUTSIDE RECORDS SUMMARY | 2024-03-22 20:19 | XMS REPORT | Continuity of Care Document ---
Author Name Unknown Address [address] [place] [address] [facility] thconnect Address [address] [place] [address] Care Team Providers Care Control Systems Engineer Name Role Phone Paolo Vuong Primary Care Physician [phone] FLORINDA TALLEY Attending Clinician Unavailable FLORINDA TALLEY Attending Clinician Unavailable Florinda Talley MD Attending Clinician [phone] Doctor Unassigned, [place] Attending Clinician U Mariza Queen Attending Clinician [phone] Payers Payer Name Policy Type Policy Number Effective Date Expirati on Date Source Problems Condition Name Condition Details Condition Category Status Onset Date Resolution Date Last Treatment Date Treating Clinician Comments Source Obesity with body mass index (BMI) of 30.0 to 39.9 Obesity with body mass index (BMI) of 30.0 to 39.9 Disease Active 06-23 00:00: 00 [facility] Benign localized prostatic hyperplasi a with lower urinary tract symptoms (LUTS) Benign localized prostatic hyperplasi a with lower urinary tract symptoms (LUTS) Disease Active 06-23 00:00: 00 [facility] Testostero ne deficiency Testostero ne deficiency Disease Active 06-23 00:00: 00 [facility] 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, 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, unspecifie d epilepsy type Disease Active 06-23 00:00: 00 [facility] No known active problems No known active problems Disease [facility] Allergies, Adverse Reactions, Alerts Allergy Name Allergy Type Status Severity Reaction(s) Onset Date Inactive Date Treating Clinician Comments Source ANESTHET IC REVERSAL AGENT DA Active SV 10-04 00:00: 00 [facility] NO KNOWN ALLERGIE S Drug Class Active [facility] Social History Social Habit Start Date Stop Date Quantity Comments Source Gender identity [facility] Sexual [facility] Exposure to SARS-CoV-2 (event) Not sure General acute hospital Alcoholic beverage intake 2023-06-24 00:00:00 2023-06-24 00:00:00 .43 /d [facility] History of Social function 2023-06-24 00:00:00 2023-06-24 00:00:00 [facility] Tobacco use and exposure 2022-08-19 00:00:00 2022-08-19 00:00:[address] tobacco user [facility] Alcohol intake 2022-08-19 00:00:00 2022-08-19 00:00:00 .43 /d [facility] Alcohol Comment 2022-08-19 00:00:00 2022-08-19 00:00:[address] [facility] History of tobacco use 2000-06-28 00:00:[address] [facility] Sex assigned at 1960 00:00:00 1960 00:00:00 [facility] Smoking Status Start Date Stop Date Source Never smoked tobacco [facility] Unknown if ever smoked [facility] Medications Ordered Medication Name Filled Medication Name Start Date Stop Date Current Medication? Ordering Clinician Indication Dosage Frequency Signature (SIG) Comments Components Source TAMSULOSIN 0.4 mg 24 hr capsule 02-23 00:00: 00 Yes [id number] TAKE ONE (1) CAPSULE(S) BY MOUTH EVERY MORNING. [facility] tamsulosin 0.4 mg 24 hr capsule 08-26 00:00: 00 02-23 00:00 :00 No [id number] TAKE ONE (1) CAPSULE(S) BY MOUTH EVERY MORNING. [facility] lamoTRIgine 100 mg tablet 06-23 16:31: 12 Yes 100mg Take 1 tablet by mouth in the morning and 1 tablet in the evening. [facility] benzonatate (TESSALON PERLES) 100 mg capsule 06-23 00:00: 00 Yes [id number] Take 1-2 capsules three times a day as needed for cough. [facility] promethazin e-dextromet horphan 6.25-15 mg/5 mL syrup 06-23 00:00: 00 Yes [id number] 5mL Take 5 mL by mouth 4 (four) times daily as needed for Cough. [facility] albuterol 90 mcg/actuati on inhaler 06-23 00:00: 00 Yes [id number] 2{puff} Inhale 2 Puffs every 6 (six) hours as needed for Wheezing or Shortness of Breath. [facility] tamsulosin 0.4 mg 24 hr capsule 2022-02 00:00: 00 08-26 00:00 :00 No [id number] .4mg Take 1 capsule by mouth in the morning. [facility] lamoTRIgine 100 mg tablet 08-19 14:27: 49 Yes 100mg Take 1 tablet by mouth in the morning and 1 tablet in the evening. [facility] tamsulosin 0.4 mg 24 hr capsule 08-19 00:00: 00 12-02 00:00 :00 No .4mg Take 1 capsule in the morning. [facility] acetaminoph en-codeine (TYLENOL #3) 300-30 mg tablet 1 tablet 2019-02 07:15: 00 01-05 06:08 :00 No 1{tbl} 1 tablet, Oral, ONCE, 1 dose, Thu01/06/20 at 0115, [facility] bupivacaine (preserv free) (SENSORCAIN E MPF) 0.25 % (2.5 mg/mL) injection 10 mL 2019-02 07:15: 00 01-05 06:09 :00 No 10mL 10 mL, Infiltrati on, ONCE, 1 dose, Thu01/06/20 [facility] htheria toxoids (TENIVAC) 5-2 Lf unit/0.5 mL injection 0.5 mL 2019-02 07:15: 00 01-05 06:08 :00 No .5mL 0.5 mL, Intramuscu lar, ONCE, 1 dose, Thu01/06/20 at 0115, Routine [facility] tamsulosin 0.4 mg 24 hr capsule 08-19 00:00: 00 08-19 00:00 :00 No [facility] testosteron e 1.62 % (20.25 mg/1.25 gram) gel 08-19 00:00: 00 Yes [facility] lamotrigine (LAMICTAL ODT ORAL) 07-20 00:00: 00 08-19 00:00 :00 No [facility] No known medications No Un [facility]i [facility] Immunizations Ordered Immunization Name Filled Immunization Name Date Status Comments Source Td 2020-01-06 00:00:[address] [facility] TD, NOS 2020-01-06 00:00:[address] [facility] TD, NOS 2020-01-06 00:00:[address] [facility] TD, NOS Unknown Completed [facility] TD, NOS Unknown Completed [facility] TD, NOS Unknown Completed [facility] TD, NOS Unknown Completed [facility] TD, NOS Unknown Completed [facility] TD, NOS Unknown Completed [facility] TD, NOS Unknown Completed [facility] TD, NOS Unknown Completed [facility] TD, NOS Unknown Completed [facility] TD, NOS Unknown Completed [facility] TD, NOS Unknown Completed [facility] TD, NOS Unknown Completed [facility] TD, NOS Unknown Completed [facility] TD, NOS Unknown Completed [facility] Vital Signs Vital Name Observation Time Observation Value Comments S ource Systolic blood pressure 2023-06-24 21:32:00 156 [facility] Di[facility] blood pressure 2023-06-24 21:32:00 81 mm[Hg[facility] Heart rate 2023-06-24 21:31:00 76 /min [facility] Body temperature 2023-06-24 21:31:[address] [facility] Respiratory rate 2023-06-24 21:31:00 18 /min [facility] Body height 2023-06-24 21:31:00 180.3 cm [facility] Body weight 2023-06-24 21:31:00 119.659 kg [facility] BMI 2023-06-24 21:31:00 36.79 kg/m2 [facility] Oxygen saturation in Arterial blood by Pulse oximetry 2023-06-24 21:31:00 96 /min [facility] Systolic blood pressure 2022-08-19 18:59:00 164 mm[Hg] [facility] Diastolic blood pressure 2022-08-19 18:59:00 81 mm[Hg[facility] Heart rate 2022-08-19 18:58:00 62 /min [facility] Body height 2022-08-19 18:58:00 180.3 cm [facility] Body weight 2022-08-19 18:58:00 115.486 kg [facility] BMI 2022-08-19 18:58:00 35.51 kg/m2 [facility] Oxygen saturation in Arterial blood by Pulse oximetry 2022-08-19 18:58:00 97 /min [facility] Systolic blood pressure 2020-01-06 07:30:00 168 mm[Hg[facility] Diastolic blood pressure 2020-01-06 07:30:00 82 mm[Hg[facility] Heart rate 2020-01-06 07:30:00 66 /min [facility] Oxygen saturation in Arterial blood by Pulse oximetry 2020-01-06 07:00:00 95 /min [facility] Respiratory rate 2020-01-06 06:30:00 16 /min [facility] Body temperature 2020-01-06 05:39:[address] [facility] Body height 2020-01-06 05:39:00 180.3 cm [facility] Body weight 2020-01-06 05:39:00 113.399 kg [facility] BMI 2020-01-06 05:39:00 34.87 kg/m2 [facility] Procedures Procedure Date / Time Performed Performing Clinician Source POCT MOLECULAR FLU 2023-06-24 21:44:[address] [facility] POCT SARS-COV-2 ANTIGEN (BINAX NOW) 2023-06-24 00:00:[address] [facility] INSURANCE CORRESPONDENCE 2023-04-23 05:01:00 Doc tor Unassigned, Gentry [facility] EXTERNAL PROVIDER RECORDS 2023-04-15 06:01:00 Do ctor Unassigned, Gentry [facility] RADIOLOGY DOCUMENTATION 2023-03-25 06:01:00 Doct or Unassigned, Gentry [facility] ED LACERATION REPAIR 2020-01-06 07:50:[address] [facility] ASSIGNMENT OF BENEFITS 2020-01-06 06:21:46 Docto r Unassigned, Gentry [facility] NOTICE OF PRIVACY PRACTICES 2020-01-06 05:26:47 Doctor Unassigned, Gentry [facility] Encounters Start Date/Time End Date/Time Encounter Type Admission Type Attending Clinicians Care Facility Care Department Encounter ID Source 2024-02-22 00:00:00 2024-02-24 11:34:23 Refill Florinda Talley [facility] 1.2.840.114 350.1.13.10 4.2.7.2.686 [id number] [facility] 2023-08-27 00:00:00 2023-08-27 10:02:37 Refill [facility] 1.284.114 350.1.13.10 4.2.7.2.686 [id number] [facility] 2023-06-24 16:20:00 2023-06-24 17:03:46 Outpatient [facility] [id number] [facility] 2023-06-24 16:20:00 2023-06-24 17:03:46 Office Visit [facility] 1.84.114 350.1.13.10 4.2.7.2.686 [id number] [facility] 2023-06-24 00:00:00 2023-06-24 12:11:30 Patient Secure Msg Doctor Unassigned, Gentry [facility] 1.20.114 350.1.13.10 4.2.7.2.686 [id number] [facility] 2023-04-23 00:00:00 2023-04-23 00:00:00 Orders Only Doctor Unassigned, Gentry [facility] 1.2840.114 350.1.13.10 4.2.7.2.686 [id number] [facility] 2023-04-15 00:00:00 2023-04-15 00:00:00 Orders Only Doctor Unassigned, Gentry [facility] 1.20.114 350.1.13.10 4.2.7.2.686 [id number] [facility] 2023-04-01 00:00:00 2023-04-01 00:00:00 Letter (Out) [facility] 1.2.840.114 350.1.13.10 4.2.7.2.686 [id number] [facility] 2023-04-01 00:00:00 2023-04-01 00:00:00 Letter (Out) [facility] 1.2.840.114 350.1.13.10 4.2.7.2.686 [id number] [facility] 2023-03-30 00:00:00 2023-03-30 00:00:00 Letter (Out) [facility] 1.2.840.114 350.1.13.10 4.2.7.2.686 [id number] [facility] 2023-03-25 00:00:00 2023-03-25 00:00:00 Orders Only Doctor Unassigned, Gentry [facility] 1.2840.114 350.1.13.10 4.2.7.2.686 [id number] [facility] 2023-03-25 00:00:00 2023-03-25 00:00:00 [facility] 1.2840.114 350.1.13.10 4.2.7.2.686 [id number] [facility] 2023-03-12 00:00:00 2023-03-12 00:00:00 Patient Secure Msg [facility] 1.2840.114 350.1.13.10 4.2.7.2.686 [id number] [facility] 2023-03-03 00:00:00 2023-03-03 00:00:00 Patient Secure Msg Doctor Unassigned, Gentry [facility] 1.2.840.114 350.1.13.10 4.2.7.2.686 [id number] [facility] 2023-03-01 00:00:00 2023-03-01 00:00:00 Refill [facility] 1.2.840.114 350.1.13.10 4.2.7.2.686 [id number] [facility] 2022-12-02 00:00:00 2022-12-02 00:00:00 Patient Secure Mskeith Talley [facility] 1.2.840.114 350.1.13.10 4.2.7.2.686 [id number] [facility] 2022-08-19 14:00:00 2022-08-19 14:36:42 [facility] [id number] [facility] 2022-08-19 14:00:00 2022-08-19 14:36:42 Office Visit [facility] 1..840.114 350.1.13.10 4.2.7.2.686 [id number] [facility] 2020-01-05 23:42:00 2020-01-06 02:06:00 Emergency Mariza Caputo R [facility] 1..840.114 350.1.13.10 4.2.7.2.686 [id number] [facility] 2020-01-05 23:28:00 2020-01-05 23:28:00 Emergency X [facility] [id number] [facility] Results Test Description Test Time Test Comments Results Result Co mments Source [facility] (BINAX NOW)2023-06-24 22:10:00* Test Item Value Reference Range Interpretation Comme nts POCT SARS-COV-2 ANTIGEN (rylan t code = 34656-3) Not Detected Not Detected On board controls acceptable with C Line (test code = 3574) Yes [facility] Molecular [id number] 21:56:05* Test Item Value Reference Range Interpretation Comme nts POCT Molecular FluA (test co de = 74172-7) Negative Negative POCT Molecular FluB (test co de = 93048-2) Negative Negative Lab Interpretation (test cod e = 05236-2) Normal [facility] Molecular [id number] 21:56:05* Test Item Value Reference Range Interpretation Comme nts POCT Molecular FluA (test co de = 82608-7) Negative Negative POCT Molecular FluB (test co de = 19367-8) Negative Negative Lab Interpretation (test cod e = 35028-3) Normal [facility] Notes Date/Time Note Provider Source 2024-02-24 11:26:53 Images from the original note were not included. Notes: Last Refilled: Name from pharmacy: Tamsulosin 0.4mg Capsule Will file in chart as: TAMSULOSIN 0.4 mg 24 hr capsule Sig: TAKE ONE (1) CAPSULE(S) BY MOUTH EVERY MORNING. Disp: 90 capsule (Pharmacy requested: 90 Each) Refills: 1 (Pharmacy requested: Not specified) Start: 02/22/2024 Class: eRX For: Benign localized prostatic hyperplasia with lower urinary tract symptoms (LUTS) Last ordered: 6 months ago (08/27/2023) by Florinda Talley MD Last refill: 11/22/2023 Rx #: [id number] Urology: Benign Prostatic Hyperplasia Heccbt6402/22/2024 04:26 PM Protocol Details Valid encounter within last 12 months To be filled at: [facility] [place] [place] [facility] [address] Recent Visits Date Type Provider Dept 06/24/23 Office Visit Florinda Talley MD [facility] Showing recent visits within past 540 days with a meds authorizing provider and meeting all other requirements Future Appointments Date Type Provider Dept 06/24/24 Appointment Florinda Talley MD [facility] Showing future appointments within next 150 days with a meds authorizing provider and meeting all other requirements [facility] Reba Caputo MA [facility] 2023-08-27 10:01:17 Last Refilled: Disp Refills Start End VALENTINO tamsulosin 0.4 mg 24 hr capsule 90 capsule 2 12/02/2022 -- No Sig: Take 1 capsule by mouth in the morning. Sent to pharmacy as: tamsulosin 0.4 mg capsule (FLOMAX) Class: eRX Route: Oral Order: [id number] Date/Time Signed: 12/02/2022 22:35 E-Prescribing Status: Receipt confirmed by pharmacy (12/02/2022 10:35 PM CDT) Recent Visits Date Type Provider Dept 06/24/23 Office Visit Florinda Talley MD [facility] 08/19/22 Office Visit Florinda Talley MD [facility] Showing recent visits within past 540 days with a meds authorizing provider and meeting all other requirements Future Appointments No visits were found meeting these conditions. Showing future appointments within next 150 days with a meds authorizing provider and meeting all other requirements Roxie Carcamo [facility] 2023-03-31 16:59:49 Addended by: REBA CAPUTO on: 03/31/2023 04:59 PM Modules accepted: Orders [facility] Reba Caputo MA [facility] 2023-03-31 16:55:59 Yes, I approve [facility] 2023-03-31 09:15:28 Do you approve neurologist referral ? ANDRA Brasher MA [facility] 2023-03-25 16:28:29 Received radiology service report from [facility]. Placed in the providers box. ANDRA Lau [facility] 2023-03-16 08:12:31 Referral placed by provider. Patient notified via mychart ANDRA Brasher MA [facility] 2023-03-14 10:02:44 Referral made [facility] 2023-03-12 09:49:[address] referral if appropriate ANDRA Brasher MA [facility]
[2024-03-22 20:54] LABS: Absolute Eosinophils 0.1 K/uL (0-0.5); Absolute Lymphocytes (CBC) 1.7 K/uL (0.7-4.9); Absolute Monocytes 1.1 K/uL (0.1-1.3); Absolute Neutrophil 4.5 K/uL (1.8-8.0); Basophils % 0.5 % (0-1.3); Eosinophils % 1.9 % (0-4.4); Hematocrit 46.7 % (39.6-49.0); Hemoglobin 16.1 g/dL (13.6-17.9); MCH 31.2 pg (27.0-35.0); MCHC 34.5 g/dL (32.0-36.0); MCV 90.5 fL (80-100); MPV 8.3 fL (7.6-11.3); Monocytes % 14.5 % (3.3-12.3); Neutrophils % 60.1 % (41.7-73.7); Nucleated Red Blood Cells % 0.1 % (0-0); Platelets 212 thou/uL (152-406); RBC Red Blood Cell Count 5.17 M/uL (4.33-5.43); Red Cell Distribution Width 13.6 % (12.1-15.2)
[2024-03-22 21:13] LABS: Troponin High Sensitivity 27.5 pg/mL (<58.9)
--- NOTE | 2024-03-22 21:42 | RAD REPORT ---
EXAMINATION: ONE VIEW CHEST XR CLINICAL INDICATION: Male, 63 years old.,COUGH TECHNIQUE: Frontal chest projection is submitted. Examination is limited by patient positioning and t echnique. COMPARISON: 06/27/2010 FINDINGS: The lungs are grossly clear although suboptimal inspiratory effort somewhat limits evaluation. No pn eumothorax or sizable effusion. Cardiomegaly with tortuosity of the aorta leading to an appearance of mediastinal widening. If there is concern for acute chest pain or other clinical findings that nelson se concern for dissection, consider additional evaluation by CT. IMPRESSION: No acute pulmonary abnormalities. Cardiomegaly with tortuosity of the thoracic aorta as above.
--- NOTE | 2024-03-22 23:08 | ER ---
Nurse's Notes [facility] Name: Montrell Bernabe Jr Age: 63 yrs Sex: Male : 1960 Arrival Date: 03/22/2024 Time: 20:16 Bed 9 Private MD: Diagnosis: Orthopnea;Dyspnea, unspecified Presentation: 03/22 20:41 Chief complaint: Patient states: chest tightness and SOB X5 days. worsening with laying lg3 down. Coronavirus screen: Client denies travel out of the [place] in the last 14 days. At this time, the client does not indicate any symptoms associated with coronavirus-19. Ebola Screen: No symptoms or risks identified at this time. Initial Sepsis Screen: Does the patient meet any 2 criteria? No. Patient's initial sepsis screen is negative. Does the patient have a suspected source of infection? No. Patient's initial sepsis screen is negative. Risk Assessment: Do you want to hurt yourself or someone else? Patient reports no desire to harm self or others. Onset of symptoms was March 18, 2024. 20:41 Method Of Arrival: Ambulatory lg3 20:41 Acuity: VIOLETTE 3 lg3 Triage Assessment: 20:43 General: Appears in no apparent distress. uncomfortable, Behavior is calm, cooperative. lg3 Pain: Complains of pain in chest Pain does not radiate. Pain currently is 2 out of 10 on a pain scale. Quality of pain is described as pressure, Also complains of shortness of breath. EENT: No deficits noted. No signs and/or symptoms were reported regarding the EENT system. Neuro: No deficits noted. Arthur Agitation-Sedation Scale (RASS): 0 - Alert and Calm Level of Consciousness is awake, alert, obeys commands, Oriented to person, place, time, situation. Cardiovascular: Reports chest pain, shortness of breath, Capillary refill < 3 seconds Clubbing of nail beds is absent JVD is absent Patient's skin is warm and dry. Rhythm is sinus rhythm Chest pain is described as mild, quality is heaviness, pressure. Respiratory: No deficits noted. Reports shortness of breath at rest Airway is patent Respiratory effort is even, unlabored, Respiratory pattern is regular, symmetrical. GI: No deficits noted. No signs and/or symptoms were reported involving the gastrointestinal system. : No signs and/or symptoms were reported regarding the genitourinary system. Derm: No deficits noted. Skin is intact, is healthy with good turgor, Skin is dry, Skin is normal, Skin temperature is warm. Musculoskeletal: Circulation, motion, and sensation intact. Range of motion: intact in all extremities, Swelling present in right leg and left leg. 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 - Infectious Disease History:: Denies. - Social history:: Smoking status: Patient denies any tobacco usage or history of. Patient uses alcohol, occasionally. Patient/guardian denies using street drugs. Screenin:20 [facility] ED Fall Risk Assessment (Adult) History of falling in the last 3 months, jb4 including since admission No falls in past 3 months (0 pts) Confusion or Disorientation No (0 pts) Intoxicated or Sedated No (0 pts) Impaired Gait No (0 pts) Mobility Assist Device Used No (0 pt) Altered Elimination No (0 pt) Score/Fall Risk Level 0 - 2 = Low Risk Oriented to surroundings, Maintained a safe environment. Abuse screen: Denies threats or abuse. Nutritional screening: No deficits noted. Tuberculosis screening: No symptoms or risk factors identified. Assessment: 21:56 Reassessment: Patient appears in no apparent distress at this time. Patient and/or jb4 family updated on plan of care and expected duration. Pain level reassessed. Patient is alert, oriented x 3, equal unlabored respirations, skin warm/dry/pink. 23:20 Reassessment: Patient appears in no apparent distress at this time. Patient and/or jb4 family updated on plan of care and expected duration. Pain level reassessed. Patient is alert, oriented x 3, equal unlabored respirations, skin warm/dry/pink. Vital Signs: 20:41 BP 194 / 92; Pulse 64; Resp 19 S; Temp 98.1(O); Pulse Ox 96% on R/A; Weight 115.67 kg lg3 (R); Height 5 ft. 11 in. (R); Pain 2/10; 21:56 BP 152 / 69; Pulse 56; Resp 20; Pulse Ox 92% on R/A; jb4 23:20 BP 141 / 72; Pulse 54; Resp 17; Pulse Ox 95% on R/A; jb4 20:41 Body Mass Index 35.56 (115.67 kg, 180.34 cm) lg3 20:41 Pain Scale: Adult lg3 ED Course: 20:18 Patient arrived in ED. im 20:20 Edilberto Azul MD is Attending Physician. ec2 20:43 Triage completed. lg3 20:43 Arm band placed on right wrist. lg3 21:00 Patient has correct armband on for positive identification. Bed in low position. Call jb4 light in reach. Side rails up X 1. Provided Education on: discharge instructions.. Client placed on continuous cardiac and pulse oximetry monitoring. NIBP monitoring applied. air sampling and monitoring on. Pulse ox on. 21:00 Inserted saline lock: 18 gauge in right forearm, using aseptic technique. Blood jb4 collected. Patient maintains SpO2 saturation greater than 95% on room air. 21:15 XRAY Chest (1 view) In Process Unspecified. EDMS 21:56 Deshaun Tuttle, RN is Primary Nurse. jb4 22:41 Troponin High Sensitivity Sent. jb4 23:22 No provider procedures requiring assistance completed. IV discontinued, intact, jb4 bleeding controlled, No redness/swelling at site. Pressure dressing applied. Administered Medications: 23:19 Drug: Furosemide IVP 20 mg IVP once; give over 2 minutes Route: IVP; Site: right jb4 forearm; 23:20 Follow up: Response: Medication administered at discharge. jb4 Medication: 23:20 VIS not applicable for this client. jb4 Outcome: 23:07 Discharge ordered by . ec2 23:22 Discharged to home ambulatory, jb4 23:22 Condition: stable 23:22 Discharge instructions given to patient, Instructed on discharge instructions, follow up and referral plans. medication usage, Demonstrated understanding of instructions, follow-up care, medications, Prescriptions given X 1, 23:23 Patient left the ED. jb4 Signatures: Dispatcher [employer] EDMS Deshaun Tuttle RN RN jb4 Celina Irby RN RN lg3 Marianna Pierce Edwin, MD ec2
--- NOTE | 2024-03-22 23:08 | EDPHYS ---
Physician Documentation [facility] Name: Montrell Bernabe Jr Age: 63 yrs Sex: Male : 1960 Arrival Date: 03/22/2024 Time: 20:16 Bed 9 Private MD: ED Physician Edilberto Azul HPI: 03/22 20:41 This 63 yrs old Male presents to ER via Unassigned with complaints of Chest ec2 Tightness, Shortness Of Breath, High Blood Pressure, Dizziness. 20:41 Patient arrives today for evaluation of shortness of breath. Patient reports that he ec2 has been experiencing orthopnea. Reports some chest tightness as well that is nonexertional that is more so chest tightness described as shortness of breath.. 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 - Infectious Disease History:: Denies. - Social history:: Smoking status: Patient denies any tobacco usage or history of. Patient uses alcohol, occasionally. Patient/guardian denies using street drugs. ROS: 20:42 Constitutional: as per hpi ec2 Exam: 20:42 Constitutional: GEN: NAD Head: atraumatic Eyes: EOMI Ears: External ears are ec2 normal. CV: regular rate, trace bilateral lower extremity edema LUNGS: no respiratory distress ABD: non-distended SKIN: no evidence of rashes MSK: no evidence of trauma Vital Signs: 20:41 BP 194 / 92; Pulse 64; Resp 19 S; Temp 98.1(O); Pulse Ox 96% on R/A; Weight 115.67 kg lg3 (R); Height 5 ft. 11 in. (R); Pain 2/10; 21:56 BP 152 / 69; Pulse 56; Resp 20; Pulse Ox 92% on R/A; jb4 23:20 BP 141 / 72; Pulse 54; Resp 17; Pulse Ox 95% on R/A; jb4 20:41 Body Mass Index 35.56 (115.67 kg, 180.34 cm) lg3 20:41 Pain Scale: Adult lg3 MDM: 20:32 Medical Screening Exam initiated ec2 20:42 Data reviewed: vital signs, nurses notes. ED course: Patient arrives today for ec2 evaluation of shortness of breath. Examination yields cardiopulmonary findings as above. EKG obtained, independently reviewed and interpreted by me, shows normal sinus rhythm, rate of 67, no acute ST segment elevations, intervals are nonactionable. Will obtain cardiac workup, BNP. Differential includes volume overload, ACS, infection. 22:43 ED course: Repeat EKG independently reviewed and interpreted by me, shows normal sinus ec2 rhythm, rate of 52, no acute ST segment elevations, intervals are nonactionable.. 23:06 ED course: Chest x-ray shows cardiomegaly. Patient with trace lower extremity edema, ec2 cardiomegaly, orthopnea. Suspect component of heart failure. 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 Return precautions given.. 03/22 20:39 Order name: Basic Metabolic Panel; Complete Time: 21:20 ec2 03/22 20:39 Order name: CBC with Diff; Complete Time: 21:20 ec03/22 20:39 Order name: NT PRO-BNP; Complete Time: 21:20 ec03/22 20:39 Order name: Troponin HS; Complete Time: 21:20 ec03/22 20:42 Order name: D-Dimer; Complete Time: 21:20 ec03/22 22:26 Order name: Troponin High Sensitivity; Complete Time: 23:01 ec03/22 20:39 Order name: XRAY Chest (1 view); Complete Time: 21:47 ec2 03/22 20:39 Order name: EKG; Complete Time: 20:40 ec03/22 20:39 Order name: Cardiac monitoring; Complete Time: 20:41 ec2 03/22 20:39 Order name: EKG - Nurse/Tech; Complete Time: 20:41 ec2 03/22 20:39 Order name: IV Saline Lock; Complete Time: 20:47 ec03/22 20:39 Order name: Labs collected and sent; Complete Time: 20:47 ec03/22 20:39 Order name: O2 Per Protocol; Complete Time: 20:41 ec2 03/22 20:39 Order name: O2 Sat Monitoring; Complete Time: 20:41 ec2 03/22 22:26 Order name: EKG - Nurse/Tech; Complete Time: 22:41 ec2 Administered Medications: 23:19 Drug: Furosemide IVP 20 mg IVP once; give over 2 minutes Route: IVP; Site: right jb4 forearm; 23:20 Follow up: Response: Medication administered at discharge. jb4 Disposition Summary: 03/22/24 23:07 Discharge Ordered Notes: Location: Home ec2 Condition: Stable ec2 Diagnosis - Orthopnea ec2 - Dyspnea, unspecified ec2 Followup: ec2 - With: Private Physician - When: - Reason: Re-evaluation by your physician Discharge Instructions: - Discharge Summary Sheet ec2 - Heart Failure Exacerbation ec2 Forms: - Medication Reconciliation Form ec2 - Antibiotic Education ec2 - Prescription Opioid Use ec2 - Patient Portal Instructions ec2 - Leadership Thank You Letter ec2 Prescriptions: - Lasix 40 mg Oral tablet - take 1 tablet ORAL route once daily for 30 days; 14 tablet; Refills: 0, Product ec2 Selection Permitted Signatures: Dispatcher [employer] EDDeshaun Moore RN RN jb4 Celina Irby RN RN lg3 Edilberto Azul MD MD ec2 Corrections: (The following items were deleted from the chart) 20:40 20:40 BASIC METABOLIC PANEL+C.LAB.BRZ ordered. EDMS EDMS 20:40 20:40 CBC+H.LAB.BRZ ordered. EDMS EDMS 20:40 20:40 PROBNP+C.LAB.BRZ ordered. EDMS EDMS 20:40 20:40 Troponin High Sensitivity+C.LAB.BRZ ordered. EDMS EDMS
[2024-03-22] MEDS ORDERED: FUROSEMIDE 20 MG/ 2ML VIAL ONE (23:10)
[2024-03-23 09:40] VITALS: TEMP 98.1
[2024-03-23 09:47] VITALS: BP 141/72; O2SAT 95
== END 2024-03-22 23:23 | disposition home or self-care (01) ==
LOC: ER 20:16
DX: R06.01 Orthopnea (principal); R06.00 Dyspnea, unspecified; R07.89 Other chest pain
CPT/HCPCS: 93005; 85025; 80048; 36415; 85379; 84484 ×2; 83880; 71045; 96374; 99285; J1940